=== PATIENT | male | born 1975 | race Caucasian/White ===

== ENCOUNTER 2018-12-22 16:24 | Emergency (ER) | payer BC, OTHER ==
[2018-12-22] MEDS ORDERED: Augmentin 875-125 Tablet PO ONE (16:41)
[2018-12-22] MEDS ORDERED: Adacel Vial IM ONE ×2 (16:41→16:50)
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
[2018-12-22 16:49] VITALS: O2SAT 98
[2018-12-22] MEDS ORDERED: Augmentin 875-125 Tablet ONE (16:50)
[2018-12-22 17:08] VITALS: BP 141/101; PULSE 80
== END 2018-12-22 17:10 | disposition home or self-care (01) ==
LOC: ED 16:24
DX: S81.832A Puncture wound without foreign body, left lower leg, initial encounter (principal); W54.0XXA Bitten by dog, initial encounter
CPT/HCPCS: 90471; 90715; 99283; A9270-GY

== ENCOUNTER 2021-04-01 23:22 | Emergency (ER) | payer BC ==
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
[2021-04-02] MEDS ORDERED: Zofran 4 MG/2 ML VIAL IV ONE (00:36)
[2021-04-02] MEDS ORDERED: Sodium Chloride 0.9% 1000 ML 1,000 ML IV STA (00:36)
[2021-04-02 01:05] LABS: Absolute Neutrophil Ct (ANC) 5.19 (1.4-6.9); BASOPHIL % 0.3 % (0.0-0.4); Basophil (Absolute #) 0.02 (0-0.4); Eosinophil % 0.4 % (0.00-5.0); Eosinophil (Absolute #) 0.03 (0-0.5); Hematocrit 48.2 % (42-50); Hemoglobin 15.7 gm/dl (12.5-18.0); Lymphocyte (Absolute #) 1.29 (1.0-4.6); Lymphocytes % 18.6 % (24.0-44.0); Mean Cell Volume 92.3 fl (78-100); Mean Corpuscular Hemoglobin 30.1 pg (26-32); Mean Corpuscular Hgb Concent. 32.6 g/dl (32-36); Mean Platelet Volume 10.2 fl (7.5-11.0); Monocyte (Absolute #) 0.39 (0.0-1.3); Monocytes % 5.6 % (0.0-12.0); Neutrophil % 75.1 % (36.0-66.0); Platelet Count 239 K/mm3 (150-450); Red Blood Count 5.22 M/mm3 (4.1-5.6); Red Cell Distribution Width 12.8 % (11.5-14.0); White Blood Count 6.9 K/mm3 (4.0-10.5)
[2021-04-02 01:06] LABS: Appearance CLEAR (CLEAR); Bilirubin NEGATIVE (NEGATIVE); Blood NEGATIVE Ery/ul (0-5); Glucose NEGATIVE (NEGATIVE); Ketones SMALL (NEGATIVE); Leukocyte Esterase NEGATIVE (NEGATIVE); Mucus SLIGHT /HPF (NEGATIVE); Nitrite NEGATIVE (NEGATIVE); Protein,Urine Dip NEGATIVE (Negative); Specific Gravity 1.028 (1.005-1.025); Urobilinogen NEGATIVE mg/dL (0-1)
[2021-04-02] MEDS ORDERED: Sodium Chloride 0.9% 1000 ML 1,000 ML ONE (01:07)
[2021-04-02] MEDS ORDERED: Zofran 4 MG/2 ML VIAL ONE (01:07)
[2021-04-02 01:12] LABS: ALBUMIN 4.7 g/dL (3.5-5.0); ALKALINE PHOSPHATASE 55 U/L (38-126); AMYLASE 89 U/L (30-110); ANION GAP 14.9 MEQ/L (5-15); BLOOD UREA NITROGEN 18 mg/dL (9-20); CHLORIDE 103 mmol/L (98-107); Calcium 9.6 mg/dL (8.4-10.2); Carbon Dioxide 25 mmol/L (22-30); Creatinine 1 0.85 mg/dL (0.66-1.25); EST GLOMERULAR FILTRATION RATE > 60.0 ML/MIN; Glucose 97 mg/dL (74-106); LIPASE 267 U/L (23-300); Potassium 4.5 mmol/L (3.5-5.1); SGOT/AST 27 U/L (17-59); SGPT/ALT 51 U/L (0-50); SODIUM 139 mmol/L (137-145); Total Protein 7.5 g/dL (6.3-8.2)
--- NOTE | 2021-04-02 09:04 | XRAY ---
Indication: Right lower quadrant pain 3 days. Multiple contiguous axial images obtained through the abdomen and pelvis without contrast. Comparison: None Lung bases demonstrates minimal dependent atelectasis. Heart is not enlarged. Noncontrasted stomach and bowel loops appear nonobstructed. Normal appendix. Mild scattered colonic fecal debris greatest in the ascending and transverse colon. Minimal sigmoid diverticulosis without diverticulitis. No free fluid/air. Gallbladder contracted without gallstones. Tiny splenic calcified granulomas. Remaining liver, gallbladder, pancreas, spleen, adrenal glands, kidneys, ureters, bladder, and aorta appear unremarkable for noncontrast exam. Osseous structures intact. No ventral or inguinal hernia. Impression: 1. Mild diffuse fecal stasis, sigmoid diverticulosis, and old granulomatous disease. 2. Remaining CT abdomen/pelvis without contrast exam is negative. Comment: Preliminary interpretation made by [facility]. No critical discrepancy.
== END 2021-04-02 02:23 | disposition home or self-care (01) ==
LOC: ED 23:22
DX: R10.9 Unspecified abdominal pain (principal)
CPT/HCPCS: 36000; 36415; 74176; 80053; 81001; 82150; 83605; 83690; 85025; 96374; 99284; J2405